=== PATIENT | female | born 1975 | race Caucasian/White ===

== ENCOUNTER 2018-06-08 04:32 | Inpatient (IN) | payer OTHER ==
[~2018-06-08] VITALS: Ht 170.2 cm; Wt 3.2 kg
[~2018-06-08 04:32] MED LIST: PRENATAL TABLE1 EAC1
[2018-06-08] MEDS ORDERED: INTEGRA PLUS C1 EACH (05:56)
[2018-06-08] MEDS ORDERED: NIFE60TA3 PO (05:56)
== END 2018-06-10 17:36 | disposition home or self-care (01) | DRG 785 ==
LOC: LDR 04:32 → O/R 08:54 → OB/GYN 11:34
PROVIDERS: ADMIT Specialist
PROC: 0UB70ZZ Excision of Bilateral Fallopian Tubes, Open Approach (ICD-10-PCS; 2018-06-08)
PROC: 4A1HXCZ Monitoring of Products of Conception, Cardiac Rate, External Approach (ICD-10-PCS; 2018-06-08)
PROC: 10D00Z1 Extraction of Products of Conception, Low, Open Approach (ICD-10-PCS; principal; 2018-06-08 07:00)
DX: O34.211 Maternal care for low transverse scar from previous cesarean delivery (principal); O75.82 Onset (spontaneous) of labor after 37 completed weeks of gestation but before 39 completed weeks gestation, with delivery by (planned) cesarean section; Z3A.38 38 weeks gestation of pregnancy; Z37.0 Single live birth; Z30.2 Encounter for sterilization

== ENCOUNTER 2019-02-14 22:25 | Inpatient (IN) | payer OTHER ==
[~2019-02-14] VITALS: Ht 61 cm; Wt 5.0 kg
[~2019-02-14 22:25] MED LIST changes: +INTEGRA PLUS C1 EACH; +NIFE60TA3 PO
== END 2019-02-18 19:39 | disposition home or self-care (01) | DRG 690 ==
LOC: ER 22:25 → MEDJ 02-15 14:02
PROVIDERS: ADMIT Specialist
PROC: BT4JZZZ Ultrasonography of Kidneys and Bladder (ICD-10-PCS; principal; 2019-02-15)
PROC: 8E0ZXY6 Isolation (ICD-10-PCS; 2019-02-15)
DX: N39.0 Urinary tract infection, site not specified (principal); B96.29 Other Escherichia coli [E. coli] as the cause of diseases classified elsewhere; Z16.12 Extended spectrum beta lactamase (ESBL) resistance; E86.0 Dehydration; E87.8 Other disorders of electrolyte and fluid balance, not elsewhere classified

== ENCOUNTER 2021-10-01 14:37 | Emergency (ER) | payer OTHER ==
[~2021-10-01] VITALS: Ht 170.2 cm; Wt 81.6 kg
== END 2021-10-01 20:20 | disposition home or self-care (01) ==
LOC: ER 14:37
DX: U07.1 COVID-19 (principal); R09.81 Nasal congestion; Z88.8 Allergy status to other drugs, medicaments and biological substances; Z91.013 Allergy to seafood